=== PATIENT | male | born 1965 | race Caucasian/White ===

== ENCOUNTER 2021-11-15 23:37 | Emergency (ER) | payer MEDICARE ==
[2021-11-16 00:48] LABS: HEMOGLOBIN 11.3 gm/dl (14.0-17.5); RED BLOOD COUNT 4.24 M/UL (4.20-5.50); WHITE BLOOD COUNT 11.8 K/UL (4.5-11.0)
[2021-11-16 01:07] LABS: BUN/CREATININE RATIO 24 (0-10)
[2021-11-16] MEDS ORDERED: MESALAMINE DR400 MG PO (02:16)
[2021-11-16] MEDS ORDERED: PREDNISONE20 MG PO (02:45)
== END 2021-11-16 03:10 | disposition home or self-care (01) ==
LOC: ER1 23:37
PROVIDERS: Family Medicine
DX: K50.90 Crohn's disease, unspecified, without complications (principal); F17.200 Nicotine dependence, unspecified, uncomplicated; I10 Essential (primary) hypertension
CPT/HCPCS: 80053; 83690; 85025; 96374; 96375; 99284; J1885; J2405; J2930; J7030; Q9967

== ENCOUNTER 2022-06-04 02:23 | Emergency (ER) | payer MEDICARE, OTHER ==
[~2022-06-04 02:23] MED LIST: MESALAMINE DR400 MG PO; PREDNISONE20 MG PO
[2022-06-04 03:08] LABS: HEMOGLOBIN 12.2 gm/dl (14.0-17.5); RED BLOOD COUNT 4.37 M/UL (4.20-5.50)
[2022-06-04 03:36] LABS: BUN/CREATININE RATIO 13 (0-10)
[2022-06-04] MEDS ORDERED: PREDNISONE 20 M20 MG GT (04:19)
== END 2022-06-04 04:37 | disposition home or self-care (01) ==
LOC: ER1 02:23
PROVIDERS: Family Medicine
DX: K50.00 Crohn's disease of small intestine without complications (principal); I10 Essential (primary) hypertension; F17.210 Nicotine dependence, cigarettes, uncomplicated; Z87.442 Personal history of urinary calculi; Z88.8 Allergy status to other drugs, medicaments and biological substances; Z88.5 Allergy status to narcotic agent
CPT/HCPCS: 80053; 83690; 85025; 96374; 99284; J2930